=== PATIENT | female | born 1940 | race Caucasian/White ===

== ENCOUNTER → 2024-04-16 | Outpatient (CLI) | payer MEDICARE ==
[~2024-04-16] MED LIST: ASPI-556 PO; ATOR20TA65 PO; BIOCLEANSE; CHOL50004 PO; FISH1CAP50 PO; LOSA100T59 PO; METAMUCIL; UBID10CA6 PO; [UNRECOGNIZED DRUG - OTHER] PO
--- NOTE | 2024-04-19 13:27 | HMCSR ---
APPROVED REPORT EXAM: Two-dimensional and M-mode echocardiogram with Doppler and color Doppler. 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 2D Dimensions RVDd3.8 cmLVEF(%)62.9 (>50%)LVED Vol(simp.)72.8 mL IVSd0.9 (0.7-1.1cm)FS(%)33 %LVES Vol(simp.)24.1 mL LVDd3.6 (3.8-5.6cm)LA (2D)2.6 (1.6-4.0cm)LVEF(%, simp.)67 % PWd1.0 (0.7-1.1cm)Ao Root(2D)2.7 (2.0-3.7cm)LA ESV INDEX (4CH)19.00 mL/m2 IVSs1.1 cmLVOT diam2.1 (1.8-2.4cm)LA ESV INDEX (2CH)17.70 mL/m2 LVDs2.4 (2.5-4.0cm)LA ESV INDEX (BP)18.40 mL/m2 PWs1.1 cm M-Mode Dimensions EPSS0.7 cm LA (MM)2.8 (1.6-4.0cm) Ao Root(MM)2.6 (2.0-3.7cm) Aortic Valve AoV VTI0.3 mAo Mean GR5.0 mmHgLVOT VTI0.17 m ARMINDA (VMAX)2.0 cm2AVA (VTI) 2.0 cm2 Mitral Valve MV E Vmax73.2 cm/sDECEL Xxli468 ms MV A Vmax92.2 cm/sP 1/2 T84 ms E/A ratio0.8MVA (PHT)2.6 cm2 MR Max PG34 mmHg TDI E/E' Yxwolt41.3E/E' Yfwymsd34.3 Medial E' Peak V3.80 cm/sLateral E' Peak V3.80 cm/s Pulmonary Valve PV VTI0.20 mPV Mean GR2 mmHg Tricuspid Valve TR Vmax2.5 m/s TR Peak GR24.4 mmHg Left Ventricle The left ventricle is normal size. There is normal left ventricular wall thickness. LVEF is 65-70%. S tage I diastolic dysfunction. Right Ventricle The right ventricle is normal size. The right ventricular systolic function is normal. Atria The left atrium size is normal. The right atrium size is normal. Aortic Valve The aortic valve is normal in structure. No aortic regurgitation is present. There is no aortic valvu lar stenosis. 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 Mitral regurgitation is mild. There is no mitral valve stenosis. Tricuspid Valve The tricuspid valve is normal in structure. There is mild tricuspid valve regurgitation noted. Pulmonic Valve The pulmonary valve is normal in structure. There is no pulmonic valvular regurgitation. Great Vessels The aortic root is normal in size. The IVC is normal in size and collapses >50% with inspiration. Pericardium There is no pericardial effusion. Other Information Quality : Fair Conclusion The left ventricle is normal size. LVEF is 65-70%. Mitral regurgitation is mild. There is mild tricuspid valve regurgitation noted.
== END | disposition home or self-care (01) ==
LOC: RAH 12:24
PROVIDERS: ATTEND Internal Medicine Cardiovascular Disease
DX: I08.1 Rheumatic disorders of both mitral and tricuspid valves (principal)
CPT/HCPCS: 93306